=== PATIENT | female | born 1955 | race Caucasian/White ===

== ENCOUNTER 2023-09-13 09:09 | Outpatient (AMB) | payer OTHER, MEDICARE, SELFPAY ==
--- NOTE | 2023-09-13 09:27 | MHC.OFFWIV ---
Intake Vital Signs 09/13/23 09:34 BP 136/74 Blood Pressure Location Lt brachial Position Sitting Pulse 64 Pulse Source Pulse Oximeter Pulse Oximetry (%) 98 Oxygen Delivery Method Room Air Intake Visit Reasons: Stitches Removal Allergies No Known Allergies Allergy (Verified 09/13/23 09:28) Medication List - Last Reconciled 09/13/23 by MAYANK Leiva Unobtainable HPI HPI Comments History of Present Illness Details Here today to have sutures removed Mechanical fall on 09/06/23 sutures placed at [facility] above the right eyebrow Tdap admin at the time of visit She has been caring for this area at home without any complication. Exam Awake alert oriented, healing ecchymosis to the right side of her face, 2 interrupted sutures removed without incident to the repaired laceration above her right eyebrow. The edges are well approximated. There is a small scab. There are no signs of infection. The patient tolerated the procedure well. Plan Advised the patient to monitor her for signs and symptoms of infection, keep the area covered and protected for the son to reduce scarring. This note is constructed using voice recognition software. While every effort has been made to ensure accuracy in automotive salesperson, still errors may have been included Sometimes, these errors may affect the content or meaning of the given sentence . Assessment & Plan Assessment & Plan (1) Visit for suture removal: Code(s): Z48.02 - Encounter for removal of sutures Plan: . Coding Level of Care Code Est Pt Level 3 (32120) Diagnoses Visit for suture removal Z48.02
[2023-09-13 09:34] VITALS: BP 136/74; PULSE 64; O2SAT 98
== END 2023-09-13 09:34 | disposition home or self-care (01) ==
PROVIDERS: Visit Provider Nurse Practitioner Family
DX: Z48.02 Encounter for removal of sutures (principal)
CPT/HCPCS: 99213

== ENCOUNTER 2024-04-23 10:45 | Outpatient (AMB) | payer OTHER, MEDICARE, SELFPAY ==
--- NOTE | 2024-04-23 10:48 | A.OFFPC_ITS ---
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 The Medicare Annual Wellness Visit (AWV) is a yearly appointment with a health professional to identify health risks and help reduce them and to create or update a personalized prevention plan. During a Medicare AWV, health professionals should also review any current opioid prescriptions, detect any cognitive impairment, and establish or update medical and family history. SurgHx: FHx SocHx: Health Maintenance: See scanned preventative medicine assessment with personalized health plan and screening schedule. Colon: Mammo DEXA PAP Vaccines: Tdap 2023, Shingles UTD, COVID UTD, Flu UTD AAA screen EKG: [place] of Care: Visual Acuity: Hearing Screening: ACP: Dietary/Nutrition/Exercise Edu provided: Y During the course of the visit the patient was educated and counseled about fermín ropriate screening and preventative services. Patient instructions were provided to the patient in written or electronic format. I have reviewed and verified the above information. PFSH Medical History (Updated 04/23/24 @ 10:57 by Pop Downey MA) No pertinent past medical history Surgical History (Updated 04/23/24 @ 10:57 by Pop Downey MA) No pertinent past surgical history Family History (Updated 04/23/24 @ 11:01 by Pop Downey MA) Mother Cancer Social History (Updated 04/23/24 @ 10:55 by Pop Downey MA) Household Members: Spouse Both parents involved: No Caregiver staying overnight: No Housing: House Are you a primary patient care nursing assistant to a significant other at home: No Do you presently have visiting nurse or other home services: No 75 years or older and lives alone: No Alcohol intake: current Alcohol intake frequency: a few times a month Patient Tobacco Use Status: Never used Tobacco e-Cigarette/Vaping Use: Never Used Second Hand Smoke Exposure: No service: No Current occupational status: employed Current occupation: [employer] Cognitive needs: No Hearing needs: No Vision needs: No Questionnaire PHQ-9 Over the last 2 weeks, how often have you been bothered by any of the following problems? 1. Little interest or pleasure in doing things: not at all 2. Feeling down, depressed, or hopeless: not at all 3. Trouble falling or staying asleep, or sleeping too much: not at all 4. Feeling tired or having little energy: not at all 5. Poor appetite or overeating: not at all 6. Feeling bad about yourself - or that you are a failure or have let yourself or your family down: not at all 7. Trouble concentrating on things, such as reading the newspaper or watching television: not at all 8. Moving or speaking so slowly that other people could have noticed. Or the opposite - being so fidgety or restless that you have been moving around a lot more than usual: not at all 9. Thoughts that you would be better off or of hurting yourself in some way: not at all Total score: 0 26368 - PHQ-9 Billing: Yes Source: Developed by Drs. Adolfo Rao, Blanche Davenport, Moises Bella and colleagues, with an educational keli from [employer]. Thrive Questionnaire Date Thrive assessed: 04/23/24 I am a: Patient What is your living situation today?: I have a steady place to live Within the past 12 months, did the food you bought not last and you didn't have the money to get more?: Never true Within the past 12 months, did you worry whether your food would run out before you got money to buy more?: Never true Do you have trouble paying for medicines?: No Do you have trouble getting transportation to medical appointments?: No Do you have trouble paying your heating and electricity bill?: No Do you have trouble taking care of your child, family member or friend?: No Do you have trouble with day-to-day activities such as bathing, preparing meals, shopping, managing finances, etc.?: No Are you currently unemployed and looking for a job?: No Are you interested in more education?: No Please select the resources that you would like help with: None Currently or been in a relationship where the following occur: No concerns reported THRIVE Score: 0 AUDIT C Alcohol Use Questionnaire (AUDIT-C) 1. How often do you have a drink containing alcohol?: 2-4 times a month 2. How many drinks containing alcohol do you have on a typical day when you are drinking?: 1 or 2 3. How often do you have six or more drinks on one occasion?: Never Total Score: 2 ROXANN-7 AMB Questionnaire ROXANN-7 Date ROXANN - 7 assessed: 04/23/24 Feeling nervous, anxious, or on edge: 0 = Not at all Not being able to stop or control worryin = Not at all Worrying too much about different things: 0 = Not at all Trouble relaxin = Not at all Being so restless that it is hard to sit still: 0 = Not at all Becoming easily annoyed or irritable: 0 = Not at all Feeling afraid as if something awful might happen: 0 = Not at all Total ROXANN-7 score (0-4 normal; 5-9 mild; 10-14 moderate; 15-21 severe): 0 Source: Developed by Drs. Adolfo Rao, Blanche Davenport, Moises Bella and colleagues, with an educational keli from [employer]. ROXANN-7 Assessment Billing ROXANN-7 Assessment Tool: ROXANN-7 Assessment 65693 Physical exam (Primary Care) Vital Signs: Last Vital Signs Temp 96.8 F 04/23/24 10:55 Pulse 90 04/23/24 10:55 Resp 13 04/23/24 10:55 BP 144/74 H 04/23/24 10:55 Pulse Ox 99 04/23/24 10:55 Oxygen Delivery Method Room Air 04/23/24 10:55 BMI result Body Mass Index 25.1 Tobacco/Smoking Status: Tobacco use Status Tobacco use date assessed 04/23/24 04/23/24 10:52 Patient Tobacco Use Status Never used Tobacco 04/23/24 10:59 e-Cigarette/Vaping Use Never Used 04/23/24 10:59 PHQ-9: PHQ-9 Score PHQ-9: Total score 0 04/23/24 11:00 Thrive Assessment: Date of Thrive Assessment Date Thrive assessed 04/23/24 04/23/24 10:52 Currently or been in a relationship where the following occur: No concerns reported Coding Additional Codes ROXANN-7 Assessment Billing - ROXANN-7 Assessment Tool: ROXANN-7 Assessment 28339 ([id number]) PHQ-9 - 19009 - PHQ-9 Billing: Yes ([id number])
[2024-04-23 10:55] VITALS: BP 144/74; PULSE 90; RESP 13; TEMP 36; O2SAT 99; BMI 25.1
--- NOTE | 2024-04-23 11:20 | A.OFFVIS_ITS ---
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 The Medicare Annual Wellness Visit (AWV) is a yearly appointment with a health professional to identify health risks and help reduce them and to create or update a personalized prevention plan. During a Medicare AWV, health professionals should also review any current opioid prescriptions, detect any cognitive impairment, and establish or update medical and family history. SurgHx: never FHx: mom cancer of liver - unsure thsi was in the SocHx: weekly etoh use; never smoker; drug use has 2 dtrs Anila and Delisa, working at [email or web address] Health Maintenance: See scanned preventative medicine assessment with personalized health plan and screening schedule. Colon: cologaurd ordered today Mammo: ordered today DEXA : ordered today PAP: has never had an abnormal- aged out Vaccines: Tdap 2023, Shingles UTD, COVID UTD, Flu UTD AAA screen: NA EKG: done today [place] [facility]: [facility] q 6 months Visual Acuity: routine eye exams wears contacts Hearing Screening: no concerns ACP: does not have HCP/MOLST Dietary/Nutrition/Exercise Edu provided: Y During the course of the visit the patient was educated and counseled about appropriate screening and preventative services. Patient instructions were provided to the patient in written or electronic format. I have reviewed and verified the above information. History of Present Illness - The patient is a 69-year-old female pr esenting to [facility] and for an sAWV - Not engaged in routine healthcare for 15 years but adheres to regular eye and dental checkups. No records avail to me. - Last mammogram occurred in 2009 or 1; she wishes to renew along with bone density screening. - Previous colonoscopy at age 51; opts f or Cologuard screening now. - No existing comorbidities or regular m edication usage noted. - Family medical history indicates liver cancer of unknown origin in mother's history. - Active lifestyle maintained through re gular exercise like golf. - Interest in evaluation and treatment o f varicose veins. Past Surgical History - No surgical history reported. Family History - Mother had cancer of unknown origin, l premaely liver-related. - No family history of breast cancer rep orted. Social History - The patient is and has two nathan lt daughters. - Works full-time at a [employer]. - Engages in regular exercise, including time at the golf range weekly. - Nutritional intake includes daily cons umption of avocado, vegetables, and lean proteins such as chicken. - Consumes alcohol occasionally and leon es smoking or drug usage. - Denies any functional limitations or a ssistance in activities of daily living. Health Maintenance - Routine evaluation of eye health and d ental health maintained. - Screening for breast cancer, osteoporo sis, and colorectal cancer due. - Agreed to mammogram, bone density, and Cologuard testing. - Discussed potential testing for choles terol and blood glucose, declined immediate testing. - Agreed to assessment for thyroid funct ion and vitamin D levels. Review of Systems - General: Denies any significant past m edical concerns. - Cardiovascular: Denies dizziness, dysp jeri, and syncope. - Musculoskeletal: Reports engaging in r egular exercise. - Neurological: Denies any neuromuscular symptoms. Physical Exam General: Well developed, well nourished, in no acute distress. Appears younger than stated age. Head: Normocephalic, atraumatic. Eyes: Pupils are equal, round and reactive to light and accommodation. Conjunctivae are clear. Vision grossly normal. Ears: TMs clear AU, EACS WNL Nose: Patent, without discharge. Neck: Supple, no adenopathy or thyromegaly. Breast: Edu on SBE Lungs: Clear to auscultation bilaterally. No rales, rhonchi or wheeze noted. Good air flow in all mesa. Heart: Regular rate and rhythm. No murmurs, click, rubs or gallops are noted. Abdomen: Bowel sounds present in all quadrants. The abdomen is soft, nontender, with no masses or organomegaly noted. No hernias are noted. : Deferred. Reviewed recommendations for routine CLINICAL PHYSICIAN ASSISTANT Pulses: Peripheral pulses are equal and palpable bilaterally. Extremities: No clubbing, cyanosis noted. varicose veins/spider veins bilat upper and lower legs, skin intact Neurologic: Gait and station normal. Cranial Nerves 2-12 intact. Motor strength grossly symmetrical and intact. No sensory loss. Balance normal. Skin: No rashes, ulcers, or lesions noted. Turgor is good. Skin color is good. H air and nails are without abnormalities. One mole on the back, unchanged over time. Psych: Normal eye contact, affect and mood appropriate, and normal interactions. Patient is alert and appropriate to context. Results - Labs: Orders placed for thyroid functi on and vitamin D levels. - Tests and Diagnostics: Orders for mamm ogram, bone density screening, Cologuard test, and EKG. Discussion Notes During our visit, I discussed with the patient the importance of updating her screenings for mammogram and bone density, given the duration since her last tests. We reviewed the option of using the Cologuard test for colorectal cancer screening, which she agreed to, as it provides a non-invasive alternative to colonoscopy. We further talked about routine screenings for thyroid function and vitamin D, considering her current health status and lifestyle. Options for varicose vein treatment were mentioned, and the referral to a specialist was agreed upon. We also discussed lab work for thyroid and vitamin D, and ensuring lifestyle factors such as dietary habits, exercise routine, and general wellness are managed effectively. I reassured her that these procedures are routine and important for ongoing health maintenance. Assessment and Plan 1. Routine Health Maintenance and Screen ing: Mammogram, bone density, and Cologuard tests will be scheduled to ensure up-to-date health maintenance. These are routine preventative screenings appropriate for her age and health history. 2. Thyroid Disorder Screening: A blood t est to assess thyroid function is appropriate given the absence of previous screenings. 3. Vitamin D Deficiency Screening: A vit hoyos D test will be conducted due to lifestyle factors and age-related risks. 4. Varicose Veins: Referral to a special ist has been made for evaluation and treatment options. The patient understands the next steps and will be contacted for scheduling. Patient Instructions - Schedule appointments for mammogram, b one density screening, and Cologuard test. - Undergo blood tests for thyroid functi on and vitamin D levels. - Follow up with the vein specialist for varicose vein evaluation. - Maintain current exercise and nutritio nal habits. - Contact the office for any new or wors ening symptoms or if assistance is needed for test scheduling. - RTO 1 year sAWV, sooner PRN Consent I obtained verbal consent from the patient for the mammogram, bone density, Cologuard test, thyroid, and vitamin D screenings. The patient understands the purpose of these tests and consents to them being conducted. Additionally, the referral to a vein specialist for varicose vein evaluation was discussed, and the patient consented to proceed. She is aware of the non-invasive nature of these procedures and their importance in her overall health maintenance. Patient was informed and verbally consented to the use of an ambient scribe for clinic note documentation during this visit. An additional 30 minutes was spent addressing the problem(s) noted at todays visit. This includes time spent before the visit reviewing the chart, time spent during the visit, and time spent after the visit on documentation reviewing laboratory results, diagnostic imaging, medications, performing a medically necessary evaluation, counseling on diagnoses, care coordination, ordering appropriate tests, ordering appropriate medications, review of tests performed by other providers, reporting test results with the patient, communication with other healthcare providers. [facility] Medical History (Updated 04/23/24 @ 15:31 by Kisha Christie, [facility]) No pertinent past medical history Surgical History (Updated 04/23/24 @ 10:57 by Pop Downey MA) No pertinent past surgical history Family History (Updated 04/23/24 @ 11:01 by Pop Downey MA) Mother Cancer Social History (Updated 04/23/24 @ 10:55 by Pop Downey MA) Household Members: Spouse Both parents involved: No Caregiver staying overnight: No Housing: House Are you a primary disabilities caregiver to a significant other at home: No Do you presently have visiting nurse or other home services: No 75 years or older and lives alone: No Alcohol intake: current Alcohol intake frequency: a few times a month Patient Tobacco Use Status: Never used Tobacco e-Cigarette/Vaping Use: Never Used Second Hand Smoke Exposure: No Questionnaire Medicare Wellness Checkup What [age]?: [age] What gender do you identify with?: female During the past 4 weeks, how much have you been bothered by emotional problems such as feeling anxious, depressed, irritable, sad or downhearted, and blue?: not at all During the past 4 weeks, has your physical & emotional health limited your social activities with family, friends, neighbors, or groups?: not at all During the past 4 weeks, how much bodily pain have you generally had?: no pain During the past 4 weeks, was someone available to help you if you needed & wanted help?: yes, as much as I wanted During the past 4 weeks, what was the hardest physical activity you could do for at least 2 minutes?: very heavy Can you get to places out of walking distance without help? (For eg., can you travel alone on buses, taxis or drive your car?): Yes Can you go shopping for groceries or clothes without someone's help?: Yes Can you prepare your own meals?: Yes Can you do your housework without help?: Yes Because of any health problems, do you need the help of another person with your personal care needs such as eating, bathing, dressing or getting around the house?: No Can you handle your own money without help?: Yes During the past 4 weeks, how would you rate your health in general?: excellent During the past 4 weeks how have things been going for you?: very well; could hardly better Are you having difficulties driving your car?: no Do you always fasten your seat belt when you are in a car?: yes, usually During past 4 weeks, have you been bothered by the following: never: Falling or dizzy when standing up, Sexual problems?, Trouble eating well?, Teeth or denture problems?, Problems using the telephone? and Tiredness or fatigue? Have you fallen 2 or more times in the past year?: No Are you afraid of falling?: No Are you a smoker?: no During the past 4 weeks, how many drinks of wine, beer, or other alcoholic beverages did you have?: 1 drink or less per week Do you exercise for about 20 minutes 3 or more times a week?: yes, all the time Have you been given information to help with the following?: no: Hazards in your house that might hurt you? and no: Keeping track of your medications? How often do you have trouble taking medicines the way you have been told to take them?: I do not have to take medicine How confident are you that you can control & manage most of your health problems?: very confident What is your race?: White Activity of Daily Living Bathing - sponge bath, tub bath or shower: receives no assistance (gets in/out by self, if usual bathing means Dressing - getting clothes from closets & drawers, including inner/outer garments & fasteners.: gets clothes & gets completely dressed without help Toileting - going to the 'toilet room' for urine/bowel elimination & cleaning self/arranging clothes: goes to toilet room, cleans self, arranges clothes without help Transfer: moves in & out of bed and chair without help (may use support object) Continence: controls urination/bowel movements completely by self Feeding: feeds self without help Total Score: 0 Information obtained from: patient Using telephone: independent Traveling: independent Shopping: independent Preparing meals: independent Housework: independent Taking medicine: independent Managing money: independent PHQ-9 Over the last 2 weeks, how often have you been bothered by any of the following problems? 1. Little interest or pleasure in doing things: not at all 2. Feeling down, depressed, or hopeless: not at all 3. Trouble falling or staying asleep, or sleeping too much: not at all 4. Feeling tired or having little energy: not at all 5. Poor appetite or overeating: not at all 6. Feeling bad about yourself - or that you are a failure or have let yourself or your family down: not at all 7. Trouble concentrating on things, such as reading the newspaper or watching television: not at all 8. Moving or speaking so slowly that other people could have noticed. Or the opposite - being so fidgety or restless that you have been moving around a lot more than usual: not at all 9. Thoughts that you would be better off or of hurting yourself in some way: not at all Total score: 0 Depression Screening Interpretation: Negative Depression Screening Done: Yes 99988 - PHQ-9 Billing: Yes Source: Developed by Drs. Adolfo Rao, Blanche Davenport, Moises Bella and colleagues, with an educational keli from [employer]. Physical Exam Vital Signs: Last Vital Signs Temp 96.8 F 04/23/24 10:55 Pulse 90 04/23/24 10:55 Resp 13 04/23/24 10:55 BP 122/70 04/23/24 11:21 Pulse Ox 99 04/23/24 10:55 Oxygen Delivery Method Room Air 04/23/24 10:55 BMI result Body Mass Index 25.1 Office Procedures EKG [id number], Complete Results Reviewed Results Reviewed: RUN: 04/23/24 1528 PAGE 1 [facility] [address] [place] [id number] Electrode Cleaning Machine Operator: Joel Black M.D. Specimen Inquiry Name: Eva Bell Age/Sex: 69/F : 1955 Unit#: [id number] Attend Dr: Kisah Christie Re04/23/24 Status: REG [facility] Disch: SPEC : [id number] EDSON: 04/23/24 STATUS: RES REQ : [id number] RECD: 04/23/24-[address]: Kisha Christie COMP: - ENTERED: 04/23/24-[address]: ORDERED: CMP, Vitamin D 25-OH, TSH Rflx Test Result Flag Reference Sodium 140 135-145 mmol/L Potassium 4.4 3.3-5.1 mmol/L CL 105 96-108 mmol/L CO2 25 22-29 mmol/L Gap 14 12-20 BUN 14 9-16 mg/dL Creat 0.91 0.5-1.4 mg/dL eGFR > 60 Chronic Kidney Disease: Estimated GFR < 60 mL/min/1.73m2 Severe Kidney Disease: Estimated GFR < 15 mL/min/1.73m2 Glucose, Random 98 60-115 mg/dL CA 10.1 8.4-10.2 mg/dL Total Bili 1.5 H 0.0-1.0 mg/dL AST (GOT) 23 5-31 U/L ALT (GPT) 11 0-31 U/L Protein, Total 8.6 H 6.5-8.0 g/dL Alb 4.7 3.5-5.0 g/dL Alk Phos 54 39-117 U/L Vit D 25-OH Tot PENDING TSH PENDING Assessment & Plan Assessment & Plan (1) Encounter for subsequent annual wellness visit (AWV) in Medicare patient: Code(s): Z00.00 - Encounter for general adult medical examination without abnormal findings (2) Menopause: Code(s): Z78.0 - Asymptomatic menopausal state (3) Laboratory exam ordered as part of routine general medical examination: Code(s): Z00.00 - Encounter for general adult medical examination without abnormal findings (4) Varicose veins of both legs with edema: Code(s): I83.893 - Varicose veins of bilateral lower extremities with other complications (5) Lipid screening declined by patient: Code(s): Z53.20 - Procedure and treatment not carried out because of patient's decision for unspecified reasons (6) Diabetes mellitus screening declined by patient: Code(s): Z53.20 - Procedure and treatment not carried out because of patient's decision for unspecified reasons (7) Advanced care planning/counseling discussion: Code(s): Z71.89 - Other specified counseling (8) Encounter to establish care: Code(s): Z76.89 - Persons encountering health services in other specified circumstances Plan . Orders: Orders MM tomosynthesis screening BI Today Z12.31 - Encounter for screening mammogram for malignant neoplasm of breast XR DEXA axial skeleton Today Z13.820 - Encounter for screening for osteoporosis, Z78.0 - Asymptomatic menopausal state Comprehensive Met. Panel Today Z00.00 - Encounter for general adult medical examination without abnormal findings Vitamin D 25-OH Total Today Z00.00 - Encounter for general adult medical examination without abnormal findings TSH reflex Free T4 Today Z00.00 - Encounter for general adult medical examination without abnormal findings AMB EKG-In Office Today Z13.6 - Encounter for screening for cardiovascular disorders Referrals Vascular Surgery Referral I83.893 - Varicose veins of bilateral lower extremities with other complications Cologuard Test Z12.11 - Encounter for screening for malignant neoplasm of colon, Z12.12 - Encounter for screening for malignant neoplasm of rectum Patient Instructions: Health screenings for women You should visit your health care provider from time to time, even if you are healthy. The purpose of these visits is to: Screen for medical issues Assess your risk for future medical problems Encourage a healthy lifestyle Update vaccinations and other preventive care services Help you get to know your provider in case of an illness Information Even if you feel fine, you should still see your provider for regular checkups. These visits can help you avoid problems in the future. For example, the only way to find out if you have high blood pressure is to have it checked regularly. High blood sugar and high cholesterol levels also may not have any symptoms in the early stages. A simple blood test can check for these conditions. There are specific times when you should see your provider or receive specific health screenings. The [place] Preventive Services Task Force publishes a list of recommended screenings. Below are screening guidelines for women ages 18 to 39. BLOOD PRESSURE SCREENING Your blood pressure should be checked at least once every 3 to 5 years if: Your blood pressure is in the normal range (top number less than 120 mm Hg and bottom number less than 80 mm Hg) You don't have risk factors for high blood pressure Ask your provider if you need your blood pressure checked more often if: The top number is 120 to 129 mm Hg or the bottom number is 70 to 79 mm Hg You have diabetes, heart disease, kidney problems, are overweight, or have certain other health conditions You have a first-degree relative with high blood pressure You are Black You had high blood pressure during a If the top number is 130 mm Hg or greater or the bottom number is 80 mm Hg or greater, this is considered stage 1 hypertension. Schedule an appointment with your provider to learn how you can reduce your blood pressure. Watch for blood pressure screenings in your area. Ask your provider if you can stop in to have your blood pressure checked. BREAST CANCER SCREENING Experts do not agree about the benefits of breast self-exams in finding breast cancer or saving lives. Talk to your provider about what is best for you. A screening mammogram is not recommended for most women under age 40. Your provider may discuss and recommend mammograms, MRI scans, or ultrasounds if you have an increased risk for breast cancer, such as: A mother or sister who had breast cancer at a young age (most often starting screening earlier than the age the close relative was diagnosed) You carry a high-risk genetic marker CERVICAL CANCER SCREENING Cervical cancer screening should start at age 21 years unless your provider advises otherwise. After the first test: Women ages 21 through 29 should have a Pap test every 3 years. Exoprts do not agree on whether HPV testing is recommended for this age group. Women ages 30 through 65 should be screened with either a Pap test every 3 years or the HPV test every 5 years or both tests every 5 years (called cotesting ). Women who have been treated for precancer (cervical dysplasia) should continue to have Pap tests for 20 years after treatment or until age 65, whichever is longer. If you have had your uterus and cervix removed (total hysterectomy), and you have not been diagnosed with cervical cancer or precancer (high grade cervical neoplasia), you do not need cervical cancer screening. CHOLESTEROL SCREENING Cholesterol screening should begin at: Age 45 for women with no known risk factors for coronary heart disease Age 20 for women with known risk factors for coronary heart disease Repeat cholesterol screening should take place: Every 5 years for women with normal cholesterol levels More often if changes occur in lifestyle (including weight gain and diet) More often if you have diabetes, heart disease, kidney problems, or certain other conditions DIABETES SCREENING You should be screened for diabetes starting at age 35 and then repeated every 3 years if you have no risk factors for diabetes. Screening may need to start earlier and be repeated more often if you have other risk factors for diabetes, such as: You have a first degree relative with diabetes. You are overweight or have obesity. You have high blood pressure, prediabetes, or a history of heart disease. Screening for diabetes should be done if you are planning to become and you are overweight and have other risk factors such as high blood pressure. DENTAL EXAM Go to the dentist once or twice every year for an exam and cleaning. Your dentist will evaluate if you need more frequent visits. EYE EXAM Have an eye exam every 5 to 10 years before age 40. If you have vision problems, have an eye exam every 2 years or more often if recommended by your provider. You should have an eye exam that includes an examination of your retina (back of your eye) at least every year if you have diabetes. IMMUNIZATIONS Commonly needed vaccines include: Flu shot: get one every year. COVID-19 vaccine: ask your provider what is best for you. Tetanus-diphtheria and acellular pertussis (Tdap) vaccine: have one at or after age 19 as one of your tetanus-diphtheria vaccines if you did not receive it as an adolescent. Tetanus-diphtheria: have a booster (or Tdap) every 10 years. Varicella vaccine: receive 2 doses if you never had chickenpox or the varicella vaccine. Hepatitis B vaccine: receive 2, 3, or 4 doses, depending on your exact circumstances. Measles, mumps, and rubella (MMR) vaccine: receive 1 to 2 doses if you are not already immune to MMR. Your provider can tell you if you are immune. Ask your provider about the human papillomavirus (HPV) vaccine if: You have not received the HPV vaccine in the past You have not completed the full vaccine series (you should catch up on this shot) Ask your provider if you should receive other immunizations if you have certain health problems that increase your risk for some diseases such as pneumonia. INFECTIOUS DISEASE SCREENING Women who are sexually active should be screened for chlamydia and gonorrhea up until age 25. Women 25 years and older should be screened for chlamydia and gonorrhea if at high risk. Screening for hepatitis C: All adults ages 18 to 79 should get a one-time test for hepatitis C. people should be screened at every . Screening for human immunodeficiency virus (HIV): All people ages 15 to 65 should get a one-time test for HIV. Depending on your lifestyle and medical history, you may also need to be scr eened for infections such as syphilis and HIV, as well as other infections. PHYSICAL EXAM All adults should visit their provider from time to time, even if they are healthy. The purpose of these visits is to: Screen for disease Assess your risk of future medical problems Encourage a healthy lifestyle Update your vaccinations and other preventive care services Maintain a relationship with a provider in case of an illness Your height, weight, and BMI should be checked at every exam. During your exam, your provider may ask you about: Depression and anxiety Diet and exercise Alcohol and tobacco use Safety issues, such as using seat belts, smoke detectors, and intimate partner violence Your medicines and risk for interactions SKIN SELF-EXAM Your provider may check your skin for signs of skin cancer, especially if you're at high risk, such as if you: Have had skin cancer before Have close relatives with skin cancer Have a weakened immune system OTHER SCREENING Talk with your provider about colon cancer screening if you have a strong family history of colon cancer or polyps, or if you have had inflammatory bowel disease or polyps yourself. Routine bone density screening of women under 40 is not recommended. Walk-In Care (Urgent Care): We Make it Easy Walk-in for urgent medical issues such as: ? Seasonal Allergies ? Insect Bites ? Cough ? Diarrhea ? Acute Asthma Attacks ? Back, Knee or Joint Pain ? Ear Infection ? Fever without a Rash ? Headaches ? Nausea ? Rossiter Eye, Rash or Skin Irritation ? Sore Throat ? Sports Physicals ? Vomiting Most insurances are accepted. Patients do not need to be part of the [facility] to seek care at the walk-in clinic. Locations [address] , [place] [address] ? [phone] [facility] in [place] provides services to ages 18 and over. Open Saturday-Saturday: 8 a.m. to 5 p.m. and Saturday: 9 a.m. to 3 p.m.* *Hours may vary due to staffing availability. To confirm Walk-In Care hours in [place], please call [phone]. [address] [place] [address] ? [phone] [facility] in [place] provides services to ages 12 and over. Open Saturday-Saturday: 8 a.m. to 5 p.m. Hours may vary due to staffing availability. To confirm Walk-In Care hours in [place], please call [phone]. LABORATORY SERVICES: [facility] ? Primary Location [address] [place] [address] Saturday through Saturday 6:00 AM ? 5:00 PM Saturday 7:00 AM ? 11:00 AM* [phone] The [facility] is centrally located near the front entrance of the [facility] for easy outpatient access. Convenient parking is provided for outpatients. *Hours may vary due to staffing availability. To confirm Laboratory hours for any location, please call [phone]. Offsite Location For your convenience, we offer offsite laboratory draw stations at the following locations: [address] [place] [address] ? [facility] [address], [address], [place] Saturday through Saturday 7:30 AM ? 1:00 PM* [phone] *Hours may vary due to staffing availability. To confirm Laboratory hours for any location, please call [phone]. [place] ? [address] [facility], [place] Saturday through Saturday 6:00 AM ? 3:30 PM* Saturday 6:30 AM ? 3 PM* [phone] *Hours may vary due to staffing availability. To confirm Laboratory hours for any location, please call [phone]. [address] [facility] Saturday through Saturday 7:30 AM ? 4:00 PM* [phone] *Hours may vary due to staffing availability. To confirm Laboratory hours for any location, please call [phone] [place] [address] Saturday through 9:00 AM ? 4:00 PM* *Hours may vary due to staffing availability. To confirm Laboratory hours for any location, please call [phone]. Appointments are not necessary. Walk-ins are welcome. Like all the departments throughout the [facility], our Lab undergoes frequent reviews to ensure the quality and accuracy of test results, and our staff takes special pride in its status as a nationally accredited facility. Patient Portal: ONE PATIENT. ONE RECORD. BETTER CARE. [facility] has a fully integrated, cutting- edge mobile electronic health information system that has revolutionized the way we care for our patients and manage our organization. This system improves communication and coordination enabling us to provide safe, higher-quality care, and an overall positive experience for staff and patients. Our first priority, as always, is to deliver the highest quality care possible. The system is running in the background supporting that priority. This portal is for all [facility] services and practices. If you are experiencing any technical difficulties with enrolling or logging into the Patient Portal please complete the [facility] Technical Support Form. [facility] now offers a new secure on-line interactive tool for patients to review their health information ? ?Patient Portal. This interactive web portal will enable patients and their families to take an active role in their care by providing easy, secure access to their health information via the internet. The Patient Portal provides patients with instant access to their health information, including laboratory results, medications, allergies, demographic information, visit history, and more. In addition to managing their own care, parents and health care proxies with authorized consent will appreciate the ability to access the records of those individuals for whom they provide care. Please note: if you wish to gain access (Proxy) to another patient?s portal, you will be required to come to the Medical Records Department in person at [facility]. Both the patient giving proxy access and the proxy will need to provide photo identification and complete the appropriate authorization. The Patient Portal also allows track their appointments online. The [facility] Patient Portal also saves patients time by allowing them to submit updates to their demographic and contact information prior to their visits. Portal email notifications will also alert patients to any new activity on their portal, such as test results and new appointments. In order to initially enroll in the [facility] Patient Portal, you will need to enter some required information including the following: * your [facility] Medical Record number * your personal home email address * name * date of Please note: In order to enroll in the [facility] Patient Portal, we need to have your email address on file in your electronic medical record. ?The email address needs to be specific for one person (yourself) in order for your Portal enrollment to be successful. ?You can update your email address in person with our Registration staff when you are registering for a hospital visit. ?Otherwise, you will need to come to the Health Information Management (Medical Records) Department at [facility]. ?We are open from Saturday ? Saturday from 7:30 a.m. ? 4:30 p.m. ?You will be required to present a photo id. Once you have successfully enrolled in the Patient Portal, you will receive a one-time user id and password for the Portal, sent to your email address. ?This will allow you to log into the Patient Portal within 99 hrs and reset your own logon id and password, and define personal security questions. ?Once your permanent login and password have been set, you can log into the [facility] Patient Portal at any time via the blue button above or from the Portal Logon button on any page of the [facility] website. [facility] encourage all of our patients to enroll in Patient Portal as it presents a valuable opportunity for patients and their families to actively participate in their care and stay healthy Welcome to [facility]. ?We look forward to working with you. Quality Reporting (2019) Adult ([facility] 138/2/22/69) Smoking risk assessment performed?: Yes Patient Tobacco Use Status: Never used Tobacco Depression screening performed: Yes Screen Results: Yes Negative screen Systolic BP not done?: No Diastolic BP not done?: No BMI screening not done: No Sexual Activity Screening ([facility] 153) Sexually active?: Yes Immunizations ([facility] 147, 117) Annual Influenza Vaccine: Yes Measles Antibody Test: No Mumps Antibody Test: No Rubella Antibody Test: No Varicella Antibody Test: No Anti Hepatitis A IgG Antigen test: No Anti Hepatitis B Virus Surface Ab test: No Fall Risk Screening ([facility] 139) Last assessed Fall Risk: 04/23/24 Fall risk assessment: No Falls in past year Dementia Assessment ([facility] 149) Cognitive assessment recorded: Yes Assessment of cognition with standardized tool: Yes (6 CIT wNL) Depression/Bipolar (159/160/161/177) PHQ-9: Total score: 0 Ophthalmol:Cataracts Visual Acuity (133) Visual acuity exam performed: Yes (routine eye exams) Coding Level of Care Code Medicare Subsequent (G0439) Est Pt Level 4 (55952) Diagnoses Encounter for subsequent annual wellness visit (AWV) in Medicare patient Z00.00 Menopause Z78.0 Laboratory exam ordered as part of routine general medical examination Z00.00 Varicose veins of both legs with edema I83.893 Lipid screening declined by patient Z53.20 Diabetes mellitus screening declined by patient Z53.20 Advanced care planning/counseling discussion Z71.89 Encounter to establish care Z76.89 CPT Codes Advance Care Planning - Time spent: 1-15 minutes, not on file ([id number]) EKG - CPT: 06295-[id number], Complete ([id number]) Additional Codes PHQ-9 - 56960 - PHQ-9 Billing: Yes ([id number]) Advance Care Planning Advance Care Planning discussion: Exists, not on file Date of discussion: 03/06/25 Who was present: self Forms completed: Health Care Proxy, MOLST and Living will Time spent: 1-15 minutes, not on file Actual minutes spent: 5
[2024-04-23 11:21] VITALS: BP 122/70
== END 2024-04-23 12:02 | disposition home or self-care (01) ==
PROVIDERS: PCP Nurse Practitioner Family; Visit Provider Nurse Practitioner Family
DX: Z00.00 Encounter for general adult medical examination without abnormal findings (principal); I83.893 Varicose veins of bilateral lower extremities with other complications; Z78.0 Asymptomatic menopausal state; Z53.20 Procedure and treatment not carried out because of patient's decision for unspecified reasons; Z71.89 Other specified counseling; Z76.89 Persons encountering health services in other specified circumstances; Z13.6 Encounter for screening for cardiovascular disorders

== ENCOUNTER 2024-04-23 11:45 | Outpatient (REF) | payer OTHER, SELFPAY ==
[2024-04-23 15:18] LABS: Alanine Aminotransferase 11 U/L (0-31); Albumin Level 4.7 g/dL (3.5-5.0); Alkaline Phosphatase 54 U/L (39-117); Anion Gap 14 (12-20); Aspartate Amino Transferase 23 U/L (5-31); Bilirubin Total 1.5 mg/dL (0.0-1.0); Blood Urea Nitrogen 14 mg/dL (9-16); Calcium 10.1 mg/dL (8.4-10.2); Carbon Dioxide 25 mmol/L (22-29); Chloride 105 mmol/L (96-108); Estimated Glomerular Filt Rate > 60; Glucose Random 98 mg/dL (60-115); Potassium 4.4 mmol/L (3.3-5.1); Sodium 140 mmol/L (135-145); Total Protein 8.6 g/dL (6.5-8.0)
[2024-04-23 15:38] LABS: TSH reflex Free T4 3.12 uIU/mL (0.32-4.0); Vitamin D 25-OH Total 14.8 ng/mL (>30)
== END 2024-04-23 11:46 | disposition home or self-care (01) ==
LOC: HO.WFDLDS 11:45
PROVIDERS: Visit Provider Nurse Practitioner Family
DX: Z00.00 Encounter for general adult medical examination without abnormal findings (principal); I83.893 Varicose veins of bilateral lower extremities with other complications; Z78.0 Asymptomatic menopausal state; Z71.89 Other specified counseling; Z76.89 Persons encountering health services in other specified circumstances
CPT/HCPCS: 36415; 80053; 82306; 84443; 93005; 96127

== ENCOUNTER 2024-04-30 09:28 | Outpatient (AMB) | payer OTHER, SELFPAY ==
[2024-04-30 09:53] VITALS: BMI 25.1
--- NOTE | 2024-04-30 09:53 | MHC.OFFVIS ---
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 Does have large VV and many spider veins on bilateral LE. Pt states she exercises daily. 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 Pt states left LE does feel heavy and does get swelling. 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 Complaints include discomfort over varicosities, slight swelling of lower extremities, cramping, and fatigue of the lower extremities. It has been affecting their daily activities including working in physical activity. It is noted more so in left leg. She is a nonsmoker and nondiabetic. She stays very physically active. 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 Patient denies any previous venous surgery or injections. Patient denies any history of DVT/ PE. Patient denies any history of phlebitis. Trial of compression includes - elevate her legs with some relief at night They now present for vascular evaluation regarding their varicose veins. [facility] Medical History No pertinent past medical history Surgical History No pertinent past surgical history Family History Mother Cancer Social History Household Members: Spouse Both parents involved: No Caregiver staying overnight: No Housing: House Are you a primary emergency care attendant to a significant other at home: No Do you presently have visiting nurse or other home services: No 75 years or older and lives alone: No Alcohol intake: current Alcohol intake frequency: a few times a month Patient Tobacco Use Status: Never used Tobacco e-Cigarette/Vaping Use: Never Used Second Hand Smoke Exposure: No Review of Systems Const Reports as per HPI and Denies weakness ENT Reports Normal hearing present and Denies dizziness Card Reports as per HPI, Denies chest pain, Denies chest pain at rest, Denies chest pain with activity, Denies dyspnea and Denies dyspnea on exertion Resp Reports as per HPI, Denies cough, Denies dyspnea and Denies dyspnea on exertion GI Reports as per HPI, Denies abdominal pain, Denies nausea and Denies vomiting Musc Denies numbness Skin/Breast Reports as per HPI, Denies erythema and Denies wounds Neuro Reports Normal hearing present, Denies dizziness, Denies numbness, Denies Sensory deficit (Neuro) and Denies weakness Psych Reports no additional complaints Endo Reports no additional complaints Physical Exam Vital Signs: BMI result Body Mass Index 25.1 Const General: healthy appearing and no acute distress Orientation/consciousness: patient oriented x3 HEENT Head: Yes normal to inspection Ears: hearing grossly normal bilaterally Mouth: Normal oral and palatal mucosa present Resp Effort & Inspection: normal respiratory effort and able to speak in complete sentences Auscultation: clear to auscultation bilaterally Cardio Jugular venous distension: no JVD Rate: regular rate Rhythm: regular rhythm Heart sounds: S1 normal heart sound present and S2 normal heart sound present Bruits: no abdominal aortic bruits, no carotid bruits, no femoral bruits and no renal bruits Peripheral pulses: Peripheral pulses 2+ throughout GI Inspection: Yes normal to inspection Palpation (GI): No Abdominal aortic bruit present Skin General skin exam: no rashes or lesions noted Wounds: no wounds Hair: normal Neuro General: patient oriented x3 Cranial nerves: Yes Normal hearing present Cognition (Neuro): normal cognition Gait exam (Neuro): Normal gait present Motor exam (neuro): 5/5 motor strength present throughout Sensory Exam: No Sensory deficit (Neuro) Extrem Other: Bilateral lower extremities: Multiple spider veins noted throughout from the upper thighs to the ankles. Slight discoloration noted around the ankles. No edema noted. Left lower extremity: Rope-like tortuosity noted on the medial aspect from just above the knee to mid calf. Right lower extremity: Smaller rope-like tortuosity noted on the medial aspect from just above the knee to mid calf. CEAP: C - 4 E - primary A - superficial P - reflux General: Yes normal to inspection, Yes full ROM, Yes capillary refill normal and Yes normal gait Quality Reporting (2019) Adult ([facility] 138/04/11/68) Smoking risk assessment performed?: Yes Patient Tobacco Use Status: Never used Tobacco Assessment & Plan Assessment & Plan (1) Varicose veins of both lower extremities with inflammation: Code(s): I83.11 - Varicose veins of right lower extremity with inflammation; I83.12 - Varicose veins of left lower extremity with inflammation Category: Medical Plan: Eva is presenting today as a referral from her PCP for varicose veins. She states she has had them for quite awhile now, longer than 20 years. She states now they are causing some discomfort. In short, the patient has evidence of venous insufficiency. I have discussed the pathophysiology with the patient. In addition I have provided informational material regarding venous disease to the patient. We have discussed conservative measures including compression, elevation, and exercise. We are able to provide her with sets of compression stockings. We discussed wearing them 8-12 hours a day and taking them off before bed at night. I have taken the liberty of ordering venous insufficiency testing with the patient. They will follow up with me after testing. The patient had an opportunity to ask questions regarding the treatment plan. All questions were answered. Imaging studies, laboratory studies and physical exam results were discussed and reviewed in detail. No major barriers to understanding were identified. The patient expressed understanding and agreement with the above treatment plan. The patient is aware they should contact our office by phone for worsening of the current condition or the appearance of new symptoms. Thank you for allowing me to participate in the vascular care of this patient. If you have any questions or concerns regarding the treatment for the above condition please do not hesitate to contact me. The office telephone contact is [phone]. This note is constructed using voice recognition software. While every effort has been made to ensure accuracy, delivery agent errors may have been included. Thank you for allowing me to participate in the care of your patient. Yours sincerely, DEBBY Ruiz Orders: Orders US venous duplex LE BI 1 Week I83.11 - Varicose veins of right lower extremity with inflammation, I83.12 - Varicose veins of left lower extremity with inflammation Coding Level of Care Code New Pt Level 4 (33187) Diagnoses Varicose veins of both lower extremities with inflammation I83.11; I83.12
== END 2024-04-30 10:30 | disposition home or self-care (01) ==
LOC: HO.HVS 09:29
PROVIDERS: PCP Nurse Practitioner Family; Visit Provider Physician Assistant Surgical
DX: I83.11 Varicose veins of right lower extremity with inflammation (principal); I83.12 Varicose veins of left lower extremity with inflammation
CPT/HCPCS: 99204

== ENCOUNTER 2024-05-08 09:24 | Outpatient (REF) | payer OTHER, SELFPAY ==
[2024-05-08 11:33] LABS: Cholesterol 310 mg/dL (<200); HDL Cholesterol 88 mg/dL (>40); LDL Cholesterol Calculated 192 mg/dL (<100); Triglycerides 154 mg/dL (<150)
== END 2024-05-08 09:25 | disposition home or self-care (01) ==
LOC: HO.WFDLDS 09:24
PROVIDERS: Visit Provider Nurse Practitioner Family
DX: Z13.6 Encounter for screening for cardiovascular disorders (principal); Z13.220 Encounter for screening for lipoid disorders
CPT/HCPCS: 36415; 80061

== ENCOUNTER 2024-05-22 08:12 | Outpatient (REF) | payer OTHER, SELFPAY ==
--- NOTE | ~2024-05-22 | US_ITS ---
EXAMINATION: US LOWER EXTREMITY VENOUS (REFLUX EXAM), BILATERAL CLINICAL INFORMATION: Varices. COMPARISON: None. TECHNIQUE: Color flow triplex imaging and compression Doppler was performed to evaluate both the deep and the superficial systems bilaterally. To evaluate the superficial system, the examination was performed in the upright position. Color-flow Doppler ultrasound and compression ultrasound were utilized. In addition, maneuvers were utilized to demonstrate reflux. FINDINGS: 1. DEEP VENOUS ULTRASOUND OF THE RIGHT LOWER EXTREMITY: Common Femoral Vein: Compressible, normal respiratory variation and augmented flow. Femoral Vein: Compressible, normal color flow and augmentation. Popliteal Vein: Compressible, normal augmentation. Deep Reflux: There is no evidence of reflux in the deep system in either the common femoral vein, superficial femoral or the popliteal vein. There is no evidence of a Maurice's cyst. 2. SUPERFICIAL ULTRASOUND WITH DOPPLER OF RIGHT LOWER EXTREMITY: GREAT SAPHENOUS VEIN: Saphenofemoral Junction: 0.6 cm; Reflux: 0 ms Proximal Thigh: 0.3 cm; Reflux: 0 ms Mid Thigh: 0.3 cm; Reflux: 0 ms Distal Thigh: 0.1 cm; Reflux: 1764 ms At Knee: 0.1 cm; Reflux: 1020 ms Proximal Calf: 0.2 cm; Reflux: 2400 ms Mid Calf: 0.3 cm; Reflux: 1940 ms Distal Calf: 0.2 cm; Reflux: 2292 ms DUPLICATED MEDIAL GREAT SAPHENOUS VEIN: Diameter: None imaged Reflux: NA DUPLICATED LATERAL GREAT SAPHENOUS VEIN: Diameter: None imaged Reflux: NA SMALL SAPHENOUS VEIN: Saphenopopliteal Junction: 0.2 cm; Reflux: 0 ms Proximal: 0.2 cm; Reflux: 0 ms Distal: 0.3 cm; Reflux: 0 ms VEIN OF GIACOMINI: Size: NA Reflux: NA PERFORATORS: Location: Small saphenous vein mid segment. Size: 0.1 cm. Reflux: NA VARICOSITIES: Location: Great saphenous vein mid calf. Size: 0.2 cm. Reflux: 2404 ms. 3. DEEP VENOUS ULTRASOUND OF THE LEFT LOWER EXTREMITY: Common Femoral Vein: Compressible, normal respiratory variation and augmented flow. Femoral Vein: Compressible, normal color flow and augmentation. Popliteal Vein: Compressible, normal augmentation. Deep Reflux: There is no evidence of reflux in the deep system in either the common femoral vein, superficial femoral or the popliteal vein. There is a 3.9 cm lobulated anechoic abnormality without flow on color Doppler interrogation in the popliteal fossa. 4. SUPERFICIAL ULTRASOUND WITH DOPPLER OF LEFT LOWER EXTREMITY: GREAT SAPHENOUS VEIN: Saphenofemoral Junction: 0.6 cm; Reflux: 0 ms Proximal Thigh: 0.5 cm; Reflux: 0 ms Mid Thigh: 0.2 cm; Reflux: 0 ms Distal Thigh: 0.3 cm; Reflux: 0 ms At Knee: 0.2 cm; Reflux: 2027 ms Proximal Calf: 0.3 cm; Reflux: 0 ms Mid Calf: 0.3 cm; Reflux: 0 ms Distal Calf: 0.2 cm; Reflux: 0 ms DUPLICATED MEDIAL GREAT SAPHENOUS VEIN: Diameter: None imaged Reflux: NA DUPLICATED LATERAL GREAT SAPHENOUS VEIN: Diameter: 0.1 cm. Reflux: NA SMALL SAPHENOUS VEIN: Saphenopopliteal Junction: 0.1 cm; Reflux: 0 ms Proximal: 0.1 cm; Reflux: 0 ms Distal: 0.3 cm; Reflux: 0 ms VEIN OF GIACOMINI: Size: NA Reflux: NA PERFORATORS: Location: Small saphenous vein mid segment. Great saphenous vein mid thigh and midcalf. Size: 0.3 cm. Reflux: NA VARICOSITIES: Location: Right saphenous vein proximal calf. Size: 0.3 cm. Reflux: NA US/US venous insuf bilat IMPRESSION: Right: Venous insufficiency, great saphenous vein from above the knee to the ankle. Varices in the right saphenous vein mid calf with reflux. Left: Venous insufficiency, great saphenous vein at the knee level. Perforators and varices without reflux. Electronically signed by: Virgilio Singh MD 05/22/2024 03:20 PM EDT
== END 2024-05-22 08:13 | disposition home or self-care (01) ==
LOC: HO.US 08:12
PROVIDERS: PCP Nurse Practitioner Family; Visit Provider Physician Assistant Surgical
DX: I83.11 Varicose veins of right lower extremity with inflammation (principal); I83.12 Varicose veins of left lower extremity with inflammation
CPT/HCPCS: 93970

== ENCOUNTER → 2024-05-22 08:14 | Outpatient (BNV) | payer OTHER, SELFPAY | PROVIDERS: PCP Nurse Practitioner Family; Visit Provider Radiology Diagnostic Radiology | DX: I83.893 Varicose veins of bilateral lower extremities with other complications (principal) | CPT/HCPCS: 93970 ==

== ENCOUNTER 2024-06-02 14:10 | Outpatient (AMB) | payer OTHER, SELFPAY ==
--- NOTE | 2024-06-02 14:20 | MHC.OFFVIS ---
Vital Signs 06/02/24 14:21 Height 5 ft 4 in Weight 146 lb BMI 25.1 Intake Visit Reasons: follow up s/p US 05/22/24 Intake Note: follow up 05/22/24. Left LE worse than Right LE, large VV and spider veins. Does sit at a desk but tries to walk around. States she does have a sciatic issue that shoots down the left side. Procedural Nurse Required: No Accompanied by: Self / Same As Patient Allergies No Known Allergies Allergy (Verified 06/02/24 14:24) HPI HPI follow up s/p US 05/22/24: Details: The patient is a 69-year-old female presenting with venous insufficiency and varicose veins. Notably, she first started noticing an increase in varicose veins approximately four years ago, with symptoms described as pulsating pains and heaviness in the right leg, escalating post-exercise. These symptoms have persisted in the context of a sedentary job requiring extended periods of sitting. The patient participates in regular exercise, activating the calf muscles, and takes steps to alleviate symptoms by moving regularly. The comprehensive venous ultrasound on May 22, 2024, and now presents for result review.. Her family medical history is negative for thrombosis events, and she has no history of smoking, diabetes, or leg trauma. [facility] Medical History No pertinent past medical history Surgical History No pertinent past surgical history Family History Mother Cancer Social History Household Members: Spouse Both parents involved: No Caregiver staying overnight: No Housing: House Are you a primary health care specialist to a significant other at home: No Do you presently have visiting nurse or other home services: No 75 years or older and lives alone: No Alcohol intake: current Alcohol intake frequency: a few times a month Patient Tobacco Use Status: Never used Tobacco e-Cigarette/Vaping Use: Never Used Second Hand Smoke Exposure: No Review of Systems Const Reports as per HPI ENT Reports no additional complaints Card Denies chest pain, Denies chest pain at rest and Denies chest pain with activity Resp Denies chest congestion and Denies cough GI Reports no additional complaints Musc Details: pain over varicosities, aching of lower extremities, swelling, cramping, heaviness and tiredness, itching Denies abnormal gait Skin/Breast Reports pruritus and Denies wounds Neuro Reports no additional complaints and Denies abnormal gait Psych Denies no additional complaints Physical Exam Vital Signs: BMI result Body Mass Index 25.1 Const General: cooperative, healthy appearing and comfortable Orientation/consciousness: oriented to person, oriented to place and oriented to time Neck Carotids: no bruits Chest Chest palpation & inspection: normal inspection of the chest and normal palpation of entire chest wall Resp Effort & Inspection: normal respiratory effort and able to speak in complete sentences Cardio Rate: regular rate Heart sounds: S1 normal heart sound present and S2 normal heart sound present Peripheral pulses: Peripheral pulses 2+ throughout GI Inspection: Yes normal to inspection Skin Other: +2 edema, large rope-like varicosities greater than 4 mm left thigh and calf CEAP Classification C4 - skin color changes Ep - Etiology Primary As - superficial veins P - reflux General skin exam: dry skin Neuro General: oriented to person, oriented to place and oriented to time Extrem Right lower extremity: full ROM, normal capillary refill and edema Left lower extremity: full ROM, normal capillary refill and edema Psych Mental Status: mental status grossly normal Results Reviewed Results Reviewed: Brief summary of venous insufficiency testing is as follows: right great saphenous vein: Positive knee on below and vein small in caliber right small saphenous vein: negative right accessory vein: none present left great saphenous vein: Positive at knee only left small saphenous vein: negative left accessory vein: none present Please note there is no evidence of any venous aneurysms or significant tortuosity Assessment & Plan Assessment & Plan (1) Varicose veins of both lower extremities with inflammation: Code(s): I83.11 - Varicose veins of right lower extremity with inflammation; I83.12 - Varicose veins of left lower extremity with inflammation Category: Medical Plan: In short patient is negative for any significant venous insufficiency. Where it is positive vein appears to be extremely small in caliber and would not treat. She does have some superficial varicosities on the left lower extremity that do occasionally cause her some discomfort. At the current time she has elected to manage this conservatively including compression elevation and exercise. She will follow up with us on an as-needed basis. If she is requiring further left leg microphlebectomy she was requested to reach out to our office. Thank you for allowing us to assist in her care. If there are any questions or concerns please do not hesitate to contact us. Coding Level of Care Code Est Pt Level 4 (80147) Diagnoses Varicose veins of both lower extremities with inflammation I83.11; I83.12
[2024-06-02 14:21] VITALS: BMI 25.1
== END 2024-06-02 14:46 | disposition home or self-care (01) ==
LOC: HO.HVS 14:10
PROVIDERS: PCP Nurse Practitioner Family; Visit Provider Surgery Vascular Surgery
DX: I83.11 Varicose veins of right lower extremity with inflammation (principal); I83.12 Varicose veins of left lower extremity with inflammation
CPT/HCPCS: 99214

== ENCOUNTER 2024-06-19 10:53 | Outpatient (REF) | payer OTHER, SELFPAY ==
--- NOTE | ~2024-06-19 | MM_ITS ---
EXAMINATION: DXA BONE DENSITY AXIAL HISTORY: Z13.820 - Encounter for screening for osteoporosis TECHNIQUE: Nabsys Dual energy absorptiometry (DEXA) of the lumbar spine, total left hip, and femoral neck was performed. COMPARISON: There are no prior studies for comparison. FINDINGS: The bone mineral density of the lumbar spine is 1.036 with a T-score of -1.2, and a Z-score of 0.4. This is indicative of osteopenia. The bone mineral density of the left total hip is 0.827 with a T-score of -1.4, and a Z-score of 0.0. This is indicative of osteopenia. The bone mineral density of the left femoral neck is 0.788 with a T-score of -1.8, and a Z-score of -0.1. This is indicative of osteopenia. FRACTURE RISK: The FRAX index suggests a risk of major osteoporotic fracture of 11.1%, and of hip fracture 2.0%. MM/XR DEXA axial skeleton IMPRESSION: Based on bone mineral density, and according to World Health Organization (WHO) criteria, the diagnosis is consistent with osteopenia. All bone density values are in grams per centimeter squared (g/cm2). Statistically, 68% of repeat scans fall within 1 SD (+/- 0.010 g/cm2 for AP spine L1-L4) and 1 SD (+/- 0.012 g/cm2 for femur total) FRAX is a trademark of the [employer]'s [employer] [facility] [employer], a World Health Organization (WHO) Collaborating Center. Electronically signed by: Adolfo Wang MD 06/19/2024 12:52 PM EDT
== END 2024-06-19 10:54 | disposition home or self-care (01) ==
LOC: HO.MAMMO 10:53
PROVIDERS: PCP Nurse Practitioner Family; Visit Provider Nurse Practitioner Family
DX: Z12.31 Encounter for screening mammogram for malignant neoplasm of breast (principal); Z13.820 Encounter for screening for osteoporosis; Z78.0 Asymptomatic menopausal state
CPT/HCPCS: 77063; 77067; 77080

== ENCOUNTER → 2024-06-19 11:30 | Outpatient (BNV) | payer OTHER, SELFPAY | PROVIDERS: PCP Nurse Practitioner Family; Visit Provider Radiology Diagnostic Radiology | DX: E28.39 Other primary ovarian failure (principal) | CPT/HCPCS: 77080 ==

== ENCOUNTER 2024-08-03 09:50 | Outpatient (REF) | payer OTHER, SELFPAY ==
--- NOTE | ~2024-08-03 | US_ITS ---
EXAMINATION: MM DIAGNOSTIC DIGITAL BREAST TOMOSYNTHESIS, LEFT Left Limited ultrasound. CLINICAL INFORMATION: Call back from screening mammography for developing focal asymmetry in the upper outer left breast middle to posterior depth with associated distortion. COMPARISON: Mammography: [facility] on PACS. TECHNIQUE: Digital breast tomosynthesis is performed in both the craniocaudal and mediolateral oblique views along with computer-aided detection (CAD). Synthesized 2D images are generated from the tomosynthesis. FINDINGS: There are scattered areas of fibroglandular density (ACR BI-RADS breast composition Category b). There is a developing focal asymmetry in the upper outer breast middle to posterior depth with associated architectural distortion which persists on additional imaging projections. No suspicious calcifications or other abnormal findings. Targeted color Doppler ultrasound demonstrates a hypoechoic irregular solid mass at 2:00 7 cm from the nipple in the left breast measuring 7 x 5 x 5 mm with internal vascular flow. This correlates with the developing focal asymmetry with distortion on mammography. US/US breast LT limited mamm only IMPRESSION: Left: Solid irregular mass on mammography at 2:00 7 cm from the nipple correlating to a developing focal asymmetry in the upper outer left breast. Recommend histology with ultrasound-guided core needle biopsy at this time. The findings and recommendations were discussed with the patient the procedure will be scheduled. ASSESSMENT: BI-RADS BI-RADS 4 - Suspicious finding RECOMMENDATION: Biopsy recommended Results were provided to the patient at time of visit by the technologist. This patient's information was entered into a reminder system with a target due date for their next mammogram. Electronically signed by: Angelina Sosa DO 08/03/2024 12:05 PM EDEmilio
== END 2024-08-03 09:51 | disposition home or self-care (01) ==
LOC: HO.MAMMO 09:50
PROVIDERS: PCP Nurse Practitioner Family; Visit Provider Nurse Practitioner Family
DX: N64.89 Other specified disorders of breast (principal)
CPT/HCPCS: 76642; 77061; 77065

== ENCOUNTER → 2024-08-03 10:00 | Outpatient (BNV) | payer OTHER, SELFPAY | PROVIDERS: PCP Nurse Practitioner Family; Visit Provider Internal Medicine | DX: N63.21 Unspecified lump in the left breast, upper outer quadrant (principal) | CPT/HCPCS: 76642; 77061; 77065 ==

== ENCOUNTER 2024-08-05 09:45 | Outpatient (REF) | payer OTHER, SELFPAY ==
--- NOTE | ~2024-08-05 | MM_ITS ---
PROCEDURE: ULTRASOUND-GUIDED LEFT BREAST BIOPSY CLINICAL INFORMATION: Developing focal asymmetry in the left breast on mammography with correlating solid irregular mass at 2:00 7 cm from the nipple on ultrasound. COMPARISON: [facility] on PACS. TECHNIQUE: The details of the procedure, as well as the risks, benefits, and alternatives to the procedure were explained to the patient in detail and all of her questions were answered, after which, written informed consent was obtained. PROCEDURE: Prior to the procedure, sonography revealed a solid irregular mass at 2:00 7 cm from the nipple. A time-out was performed, the lesion intended for biopsy was targeted and the skin of the left breast was then prepped and draped in the usual sterile fashion. Using sonographic guidance, sterile technique, and 1% lidocaine without epinephrine for local anesthesia, a total of 6 cores were obtained through the targeted area with a 14-gauge biopsy device. At the completion of tissue sampling, a single butterfly metallic clip was deposited at the biopsy site. An appropriate sample was obtained. The postprocedure 2-view direct digital mammogram reveals satisfactory positioning of the biopsy clip. The patient tolerated the procedure well and, after assuring adequate hemostasis, was discharged in good condition after reviewing postbiopsy breast care instructions. Final pathology results are pending. MM/MM tomosynthesis diagnostic LT IMPRESSION: 1. Uncomplicated sonographically-guided core biopsy of the left breast. The 2-view direct digital postprocedure mammogram reveals satisfactory positioning of the biopsy clip. 2. Final pathology results are pending. A separate report with final recommendations will be issued once these results are made available. Electronically signed by: Angelina Sosa DO 08/05/2024 11:14 AM EDT
[2024-08-05] MEDS: Sodium Bicarbonate 8.4% 50 MEQ/50 ML VIAL SUBCUT (10:38)
[2024-08-05] MEDS: Lidocaine HCl 1 % 20 ML VIAL 9 ML SUBCUT (10:40)
== END 2024-08-05 09:46 | disposition home or self-care (01) ==
LOC: HO.MAMMO 09:45
PROVIDERS: PCP Nurse Practitioner Family; Visit Provider Surgery
DX: N63.21 Unspecified lump in the left breast, upper outer quadrant (principal)
CPT/HCPCS: 19083; 77061; 77065; 88305; 88360; A4648; J2003

== ENCOUNTER → 2024-08-05 10:00 | Outpatient (BNV) | payer OTHER, SELFPAY | PROVIDERS: PCP Nurse Practitioner Family; Visit Provider Internal Medicine | DX: N63.21 Unspecified lump in the left breast, upper outer quadrant (principal) | CPT/HCPCS: 19083; 77065 ==

== ENCOUNTER 2024-08-13 15:25 | Outpatient (AMB) | payer OTHER, SELFPAY ==
--- NOTE | 2024-08-13 15:27 | A.OFFVIS_ITS ---
Vital Signs 3 08/13/24 15:42 Height 5 ft 4 in Weight 145 lb 8.081 oz BMI 25.0 Pulse 80 Intake Visit Reasons: (L) breast US BX 2 O'Clock asymmetry Intake Note: Patient is seen in office for ultrasound biopsy Consult & Results, following left breast 2 o'clock mass. Pt c/o: did not feel a lump, was found by mammogram, denies any prior breast lump, infections or surgeries, no fm hx of breast cancer, yes to breast feeding with no complications, had biopsy done and is here for results, admits to increase brusing Surgery Specialist Required: No Associate: Associate Present Accompanied by: Self / Same As Patient Allergies No Known Allergies Allergy (Verified 08/13/24 15:44) Medication List - Last Reconciled 08/17/24 by Filiberto Keller MD cholecalciferol (vitamin D3) 10 mcg PO DAILY HPI Comments Details: 69-year-old female patient returning following an ultrasound-guided core biopsy of the left breast, 02:00 location for abnormal mammogram and ultrasound. She denies a previous history of breast problems or breast surgery and her family history is negative for breast cancer or ovarian cancer. She is . A screening mammogram performed on 06/19/2024 plus additional images and ultrasound performed a left breast solid irregular mass at the 02:00 location approximately 7 cm from the nipple by ultrasound corresponding to a focal asymmetry on mammogram. The ultrasound-guided core biopsy was performed at the [facility] on 08/05/2024. She tolerated this well but does report some bruising outside the skin. Pathology revealed a left breast invasive ductal carcinoma, grade 1, ER/MI positive, HER2 Bnoy negative, Ki-67 low. A copy of the pathology report was provided to the patient at the time of this visit. [facility] Medical History (Updated 08/17/24 @ 09:28 by Filiberto Keller MD) Invasive ductal carcinoma of left breast No pertinent past medical history Surgical History No pertinent past surgical history Family History Mother Cancer Sister Melanoma of eye Social History Household Members: Spouse Both parents involved: No Caregiver staying overnight: No Housing: House Are you a primary post acute care nurse practitioner to a significant other at home: No Do you presently have visiting nurse or other home services: No 75 years or older and lives alone: No Alcohol intake: current Alcohol intake frequency: a few times a month Patient Tobacco Use Status: Never used Tobacco e-Cigarette/Vaping Use: Never Used Second Hand Smoke Exposure: No Female Reproductive History Menstrual Age of Menarche: 10 Date of last menstrual period: 02/18/03 Total pregnancies: 2 Number of Living Children: 2 Review of Systems Const All systems reviewed & are unremarkable except as noted in HPI and below Physical Exam Vital Signs: Last Vital Signs Pulse 80 08/13/24 15:42 BMI result Body Mass Index 25.0 Const General: cooperative and no acute distress Nutritional Appearance: well nourished Orientation/consciousness: patient oriented x3 Limitations: no limitations HEENT Head: Yes normocephalic and Yes atraumatic Ears: hearing grossly normal bilaterally Chest Other: Left breast: Large area of ecchymosis in the lower outer quadrant with biopsy site at the 02:00 location with intact Steri-Strips. Fullness noted below the skin which may either be the underlying mass verses hematoma. No other palpable mass, or enlarged lymph nodes were appreciated. Right breast: No skin change, no nipple retraction, no nipple discharge, no palpable mass, no enlarged lymph nodes Chest/axillae images: 2 1. Area of ecchymosis Resp Effort & Inspection: normal respiratory effort, no audible wheezes, no cough and no respiratory distress Cardio Jugular venous distension: no JVD GI Inspection: Yes normal to inspection Skin Other: Warm, dry, no rash Neuro Other: Mobility Assessment: 1. 3 meter assessment time (seconds): 5 2. Gait observations: Normal balance and gait General: patient oriented x3 Extrem General: Yes no clubbing, cyanosis or edema Assessment & Plan Assessment & Plan (1) Invasive ductal carcinoma of left breast: Code(s): C50.912 - Malignant neoplasm of unspecified site of left female breast Category: Medical Plan 69-year-old female patient with a newly diagnosed left breast invasive ductal carcinoma, status post ultrasound-guided core biopsy 1 week ago. I reviewed the pathology results in detail and discussed the treatment options available. The lesion appears small with favorable immunohistochemical stains and she should be a good candidate for breast conservation. I reviewed the procedure, risks, and alternatives in detail and she consents to a left breast lumpectomy with localizer and right axillary sentinel node biopsy. She will be scheduled as a short-stay surgery. Coding Level of Care Code New Pt Level 4 (80480) Diagnoses Invasive ductal carcinoma of left breast C50.912
[2024-08-13 15:42] VITALS: PULSE 80; BMI 25.0
== END 2024-08-13 15:54 | disposition home or self-care (01) ==
LOC: HO.HGS 15:25
PROVIDERS: PCP Nurse Practitioner Family; Visit Provider Surgery
DX: C50.912 Malignant neoplasm of unspecified site of left female breast (principal)
CPT/HCPCS: 99204

== ENCOUNTER → 2024-09-10 08:00 | Outpatient (BNV) | payer OTHER, SELFPAY | PROVIDERS: PCP Nurse Practitioner Family; Visit Provider Internal Medicine | DX: C50.412 Malignant neoplasm of upper-outer quadrant of left female breast (principal) | CPT/HCPCS: 19285; 77065 ==

== ENCOUNTER 2024-09-10 08:01 | Outpatient (REF) | payer OTHER, SELFPAY ==
--- NOTE | ~2024-09-10 | US_ITS ---
EXAMINATION: Ultrasound GUIDED RFID LOCALIZATION BREAST, LEFT CLINICAL INFORMATION: Left breast invasive ductal carcinoma with mucinous features. Here for ultrasound-guided localization. COMPARISON: [facility] on PACS. TECHNIQUE NEEDLE LOC: Proper informed consent is obtained from the patient after discussion of the procedure, potential risks and complications, and alternatives including declining the procedure today. Patient was given an opportunity for questions. The patient appeared to understand. The patient consented to the procedure and signed the consent form. GUIDANCE: Ultrasound. APPROACH: Lateral Medial. TARGET: Left breast mass 2:00 butterfly clip. ANESTHESIA: carbonated lidocaine. LOCALIZATION SYSTEM: [employer] LOCallizer Wire-Free Guidance System with 12g needle applicator. RADIOFREQUENCY TAG: ID # [id number] RF Tag ID confirmed with LOCalizer Guidance System prior to placement. The skin is prepped and local anesthesia administered. The needle is positioned and RFID tag deployed. Final images demonstrate the LOCalizer RF tag to reside within the mass adjacent to the marker clip however the marker clip is not seen on mammography many images were taken. The marker clip was seen on ultrasound is adjacent to the tag. The patient tolerated the procedure well and had no immediate complications. Dressing placed and home instructions reviewed. US/US Breast RF Tag Device Left IMPRESSION: -Status post left breast RFID localization. Electronically signed by: Angelina Sosa DO 09/10/2024 09:55 AM EDT
--- NOTE | ~2024-09-10 | MM_ITS ---
EXAMINATION: Ultrasound GUIDED RFID LOCALIZATION BREAST, LEFT CLINICAL INFORMATION: Left breast invasive ductal carcinoma with mucinous features. Here for ultrasound-guided localization. COMPARISON: [facility] on PACS. TECHNIQUE NEEDLE LOC: Proper informed consent is obtained from the patient after discussion of the procedure, potential risks and complications, and alternatives including declining the procedure today. Patient was given an opportunity for questions. The patient appeared to understand. The patient consented to the procedure and signed the consent form. GUIDANCE: Ultrasound. APPROACH: Lateral Medial. TARGET: Left breast mass 2:00 butterfly clip. ANESTHESIA: carbonated lidocaine. LOCALIZATION SYSTEM: [employer] LOCallizer Wire-Free Guidance System with 12g needle applicator. RADIOFREQUENCY TAG: ID # [id number] RF Tag ID confirmed with LOCalizer Guidance System prior to placement. The skin is prepped and local anesthesia administered. The needle is positioned and RFID tag deployed. Final images demonstrate the LOCalizer RF tag to reside within the mass adjacent to the marker clip however the marker clip is not seen on mammography many images were taken. The marker clip was seen on ultrasound is adjacent to the tag. The patient tolerated the procedure well and had no immediate complications. Dressing placed and home instructions reviewed. MM/MM tomosynthesis diagnostic LT IMPRESSION: -Status post left breast RFID localization. Electronically signed by: Angelina Sosa DO 09/10/2024 09:55 AM EDT
[2024-09-10] MEDS: Lidocaine HCl 1 % 20 ML VIAL 6 ML SUBCUT (09:39)
== END 2024-09-10 08:02 | disposition home or self-care (01) ==
LOC: HO.MAMMO 08:01
PROVIDERS: PCP Nurse Practitioner Family; Visit Provider Surgery
DX: C50.912 Malignant neoplasm of unspecified site of left female breast (principal)
CPT/HCPCS: 19285; 77061; 77065; C1819; J2003

== ENCOUNTER 2024-09-15 06:56 | Day surgery (SDC) | payer OTHER, SELFPAY ==
[2024-09-11 12:56] VITALS: BMI 25.0
--- NOTE | 2024-09-14 13:26 | HO.ANESPROP2 ---
Documented by User: Mary Phillips NP 09/14/24 13:29 HPI - Anesthesia Eval Consult details Narrative: 69yo F for Left Breast Lumpectomy w/LOCalizer, [place] Node Biopsy PMFSH Active Problems Active Problems: All Active Problems Osteopenia (Acute) HLD (hyperlipidemia) (Acute) Screening for lipid disorders (Acute) Varicose veins of both lower extremities with inflammation (Acute) Vitamin D deficiency (Acute) Advanced care planning/counseling discussion (Acute) Diabetes mellitus screening declined by patient (Acute) Lipid screening declined by patient (Acute) Varicose veins of both legs with edema (Acute) Laboratory exam ordered as part of routine general medical examination (Acute) Menopause (Acute) Visit for suture removal (Acute) Invasive ductal carcinoma of left breast (Acute) Past Medical History Medical History Varicose vein of leg Hyperlipidemia Osteopenia Invasive ductal carcinoma of left breast Family History Family History Mother Cancer Sister Melanoma of eye Surgical History Surgical History No pertinent past surgical history Social History Social History Household Members: Spouse Both parents involved: No Caregiver staying overnight: No Housing: House Are you a primary certified caregiver to a significant other at home: No Do you presently have visiting nurse or other home services: No 75 years or older and lives alone: No Alcohol intake: current Alcohol intake frequency: a few times a month Comment: counts correct Patient Tobacco Use Status: Never used Tobacco e-Cigarette/Vaping Use: Never Used Second Hand Smoke Exposure: No Meds Allergies Allergy/AdvReac Type Severity Reaction Status Date / Time No Known Allergies Allergy Verified 08/13/24 15:44 Home Medications ?Medication ?Instructions ?Recorded ?Confirmed ?Last Taken ?Type cholecalciferol (vitamin D3) 10 10 mcg PO DAILY 04/30/24 08/17/24 Unknown History mcg (400 unit) capsule Exam Height,Weight and Vital Signs: Height 5 ft 4 in Weight 66 kg Pertinent Lab Results Pertinent Lab Results: Laboratory Tests 04/23/24 11:48 Sodium 140 Potassium 4.4 Chloride 105 Carbon Dioxide 25 BUN 14 Creatinine 0.91 Narrative Narrative: EKG 04/2024 NSR @ 60 Minimal criteria for LVH Assessment and Plan Assessment Anesthesia Assessment: Chart Reviewed Documented by User: William Vazquez MD 09/15/24 16:54 PMFSH Past Medical History Medical History Varicose vein of leg Hyperlipidemia Osteopenia Invasive ductal carcinoma of left breast Family History Family History Mother Cancer Sister Melanoma of eye Family history of problems with anesthesia: No Surgical History Surgical History No pertinent past surgical history History of Problems with Anesthesia: No Social History Social History Household Members: Spouse Both parents involved: No Caregiver staying overnight: No Housing: House Are you a primary certified caregiver to a significant other at home: No Do you presently have visiting nurse or other home services: No 75 years or older and lives alone: No Alcohol intake: current Alcohol intake frequency: a few times a month Comment: counts correct Patient Tobacco Use Status: Never used Tobacco e-Cigarette/Vaping Use: Never Used Second Hand Smoke Exposure: No Meds Allergies Allergy/AdvReac Type Severity Reaction Status Date / Time No Known Allergies Allergy Verified 08/13/24 15:44 Home Medications ?Medication ?Instructions ?Recorded ?Confirmed ?Last Taken ?Type cholecalciferol (vitamin D3) 10 10 mcg PO DAILY 04/30/24 08/17/24 Unknown History mcg (400 unit) capsule Assessment and Plan Assessment Anesthesia Assessment: Anesthesia Plan Discussed Final Anesthetic Review Family History of Problems with Anesthesia: No History of Problems with Anesthesia: No NPO: Yes ASA Class: II Final Preanesthetic Review: No Changes in Pt Med Stat, Meds/Allgs Chart Reviewed, Consent Obtained/Reviewed and Anes Risks/Benef Reviewed Patient Risk: Low Procedure Risk: Low Anesthetic Plan Anesthetic Plan: GA Disposition: Standard PACU
--- NOTE | ~2024-09-15 | NM_ITS ---
EXAMINATION: Left breast sentinel node. Nuclear medicine. CLINICAL INDICATION: Left breast invasive ductal cancer. COMPARISON: Left mammogram 09/10/2024. TECHNIQUE: Following explaining left breast sentinel node procedure, benefits and risk a written consent was obtained from the patient by Dr. jonathon Bates. 4% lidocaine jelly cream was applied around the left breast areola 30 minutes prior to procedure. Lidocaine Jelly around the areola was cleaned. The area around the areola was cleaned and aseptic manner. 10.5 mCi of technetium 99m Tilmanocept divided in 4 equal doses was injected in 4 quadrants around left breast areola and imaging obtained 30 minutes later. Patient tolerated procedure extremely well. FINDINGS/ NM/NM sentinel node w imaging IMPRESSION: There is normal activity seen around the left breast areola. Faint solitary sentinel node is visualized in the left anterior axilla. Electronically signed by: Jaden Hays MD 09/15/2024 02:19 PM EDT
--- NOTE | ~2024-09-15 | MM_ITS ---
Left specimen radiographs (3 images) demonstrate the LOCalizer tag within the specimen, but no biopsy clip could be identified. These findings were discussed with the breast surgeon Dr. Hendrickson at the time of interpretation of the images at approximately 1:25 PM on September 15, 2024. Note that a butterfly shaped clip was placed following ultrasound-guided needle core biopsy on August 05, 2024, which was visualized in satisfactory position on the mammogram obtained immediately following the ultrasound-guided needle core biopsy. A LOCalizer tag was placed on September 10, 2024. The biopsy clip could not be seen on multiple mammograms obtained following the tag placement. Electronically signed by: Stephan Dennison MD 09/15/2024 02:03 PM EDT
[2024-09-15 07:18] VITALS: BP 146/60; PULSE 62; RESP 16; TEMP 36.6; O2SAT 98
[2024-09-15] MEDS: Lactated Ringers 1,000 ML 100 ML IVCONT (07:21)
--- NOTE | 2024-09-15 12:17 | MHC.SHP ---
Pre-Procedural Eval Section A - 24 Hr Update-Section A only Date of Service: 09/15/24 The patient is an INPATIENT: No Changes since office visit: Yes Patient answered all questions; No Cold of Flu in the past 2 weeks, No New Medical Problems and No Changes in Medication The patient has been examined within 24 hours of the surgical procedure. The History & Physical has been completed within 30 days and I have reviewed it.: No Section B - Complete if H&P > 30 days Chief Complaint: Malignant neoplasm of unspecified site of left Details of Present Illness: No change in patient's symptoms. Relevant Family History (Specify if Yes): No Relevant Social History: None Present Medications: see Short Stay Collaborative assessment Medical History: No relevant PMH History of Previous Operations: No relevant previous surgery Allergies: Allergies Allergy/AdvReac Type Severity Reaction Status Date / Time No Known Allergies Allergy Verified 08/13/24 15:44 Review of Systems Sugical H&P ROS: Negative: Constitution, Cardiovascular, Respiratory, Neurological, Psychiatric, Hem-Onc, Allergic/Immunologic, Gastrointestinal, Genitourinary, Musculoskeletal, Integumentary, Endocrine and Eyes/Ears/Nose/Throat Exam Surgical H&P Exam: Normal: HEENT, Normal: Heart, Normal: Lungs, Normal: Extremities, Normal: Abdomen, Normal: Skin and Normal: Neurological Plan Diagnosis/Plan: Unchanged I have reviewed the history and physical and performed a pertinent physical examination on my patient. No changes have occurred unless specified. Time Spent With Patient Time: Total time managing care of this patient today ____ minutes.
--- NOTE | 2024-09-15 14:06 | P.OP_ITS ---
Operative Note Operative Note Date of Service: 09/15/24 Narrative: Preoperative diagnosis: Invasive ductal carcinoma left breast Postoperative diagnosis: Same Procedure: Left breast lumpectomy with localizer, left axillary sentinel node biopsy Surgeon: Filiberto Keller MD Shingle Weaver: Carlos Mix PA-C, ANGELA Henderson Anesthesia: General LMA Indications for procedure: 69-year-old female patient with a recent density noted in the left breast at the upper outer quadrant felt to be suspicious for malignancy. Subsequent ultrasound-guided core biopsy revealed an invasive ductal carcinoma, ER/AZ positive HER2 Bony negative, Ki-67 low. She presents today for lumpectomy and sentinel node biopsy. On preoperative lymphoscintigraphy minimal activity is noted in the left axilla. Operative findings: Localizing clip noted within the specimen x-ray however marking clip is not identified on specimen x-ray. A palpable masses noted in the specimen close to the skin margin. Additional skin margin was obtained from the inferior portion of the incision. Minimal to no radioactivity was noted in the axilla. No palpable nodes were noted in the axilla. Specimen: Left breast lumpectomy, additional skin margin, axillary tissue x2 Estimated blood loss: 10 mL Complications: None Procedure details: Patient was brought to the OR and placed in a supine position. After administering general anesthesia the patient's left breast was prepped with ChloraPrep and draped in a sterile fashion. A surgical time-out was called the consent confirmed. Patient received preoperative antibiotics and Venodyne boots were in place. Localizer device was then used to identify the area of increased activity. Local anesthesia was infiltrated in a curvilinear fashion over this location. A curvilinear incision was then made with a scalpel and carried out through subcutaneous tissue. Superior and inferior skin flaps were then created using sharp dissection and electrocautery. A core of tissue around the localizing clip was then performed extending down to chest wall. The specimen was removed and specimen x-ray confirmed a localizer clip and no marking clip within the specimen. Additional examination of the hollows revealed no clip within the breast cavity. Specimen was sent to pathology for further examination. This confirmed a firm mass superficial, close the skin margin. The decision was made to send additional skin margin with the specimen which was sent as a 2nd specimen. Attention was then directed to the axilla which was approached through the lumpectomy incision. Using the gamma probe an area of slight activity was noted in the axilla. The dissection into the axillary compartment revealed no palpable nodes. Several areas of low activity were excised but no palpable node noted within the specimen. These were sent as axillary tissue. No further radio activity was identified within the axilla. No additional palpable nodes were identified. Wounds were irrigated with saline solution and suctioned dry. The breast cavity was marked with hemoclips. Clavipectoral fascia was reapproximated using interrupted 3-0 Polysorb sutures. Breast tissue was reapproximated using interrupted 3-0 Polysorb sutures as was the dermis. Skin was closed using a running subcuticular 4-0 Polysorb suture. Steri-Strips, 4 x 4 gauze and Tegaderm were then applied. The patient tolerated the procedure well. Sponge, instrument, and needle counts were reported as correct. The patient was transferred to PACU in stable condition. Breast [place] Node Biopsy Substrate(s) used for sentinel node biopsy in the non-neoadjuvant setting: Radiotracer Substrate(s) used for sentinel node biopsy in the neoadjuvant setting: N/A All colored nodes or non-colored nodes present at the end of a dye filled lymphatic channel were removed, if dye was used as the substrate for localization: N/A All significantly radioactive nodes were removed, if radionuclide was used as the substrate for localization: Yes All palpably suspicious nodes were removed, if present: Yes If clips were placed in pathology-involved nodes, those nodes were identified and removed: N/A Procedure performed with curative intent?: Yes General Surg. - Synoptic Notes Breast [place] Node Biopsy Substrate(s) used for sentinel node biopsy in the non-neoadjuvant setting: Radiotracer Substrate(s) used for sentinel node biopsy in the neoadjuvant setting: N/A All colored nodes or non-colored nodes present at the end of a dye filled lymphatic channel were removed, if dye was used as the substrate for localization: N/A All significantly radioactive nodes were removed, if radionuclide was used as the substrate for localization: Yes All palpably suspicious nodes were removed, if present: Yes If clips were placed in pathology-involved nodes, those nodes were identified and removed: N/A Procedure performed with curative intent?: Yes
[2024-09-15 14:20] VITALS: BP 138/60; PULSE 76; RESP 14; TEMP 36.6; O2SAT 97
[2024-09-15 14:25] VITALS: BP 131/67; PULSE 66; RESP 12; O2SAT 98
[2024-09-15 14:30] VITALS: BP 132/70; PULSE 72; RESP 14; O2SAT 97
[2024-09-15 14:35] VITALS: BP 140/76; PULSE 67; RESP 16; O2SAT 96
[2024-09-15 14:50] VITALS: BP 139/65; PULSE 65; RESP 18; TEMP 36.4; O2SAT 96
== END 2024-09-15 15:14 | disposition home or self-care (01) ==
PROVIDERS: PCP Nurse Practitioner Family; Visit Provider Surgery
PROC: (CPT 19301; principal; 2024-09-15 11:00)
PROC: (CPT 19301; 2024-09-15 11:00)
DX: C50.412 Malignant neoplasm of upper-outer quadrant of left female breast (principal); Z17.0 Estrogen receptor positive status [ER+]; Z17.21 Progesterone receptor positive status; Z17.32 Human epidermal growth factor receptor 2 negative status; M85.80 Other specified disorders of bone density and structure, unspecified site; E78.5 Hyperlipidemia, unspecified; I83.90 Asymptomatic varicose veins of unspecified lower extremity; Z79.899 Other long term (current) drug therapy
CPT/HCPCS: 19301; 38525; 38900; 78195; 88304; 88305; 88307; A9520; C1889; J0131; J0690; J1100; J1171; J2003; J2405; J2704; Q9968

== ENCOUNTER → 2024-09-15 06:56 | Outpatient (BNV) | payer OTHER, SELFPAY | PROVIDERS: PCP Nurse Practitioner Family; Visit Provider Surgery | DX: C50.412 Malignant neoplasm of upper-outer quadrant of left female breast (principal) | CPT/HCPCS: 19301; 38525; 38900 ==

== ENCOUNTER → 2024-09-15 08:32 | Outpatient (BNV) | payer OTHER, SELFPAY | PROVIDERS: PCP Nurse Practitioner Family; Visit Provider Radiology Diagnostic Radiology | DX: C50.912 Malignant neoplasm of unspecified site of left female breast (principal) | CPT/HCPCS: 78195 ==

== ENCOUNTER 2024-09-25 10:39 | Outpatient (AMB) | payer OTHER, SELFPAY ==
--- NOTE | 2024-09-25 10:44 | A.OFFVIS_ITS ---
Vital Signs 3 09/25/24 10:47 Weight 140 lb BP 160/75 H Blood Pressure Location Rt brachial Position Sitting Pulse 72 Intake Visit Reasons: S/P Lt. brst lumpectomy w/localizer & Lt. SN bx Intake Note: Patient is seen in office for post op assessment post left breast lumpectomy. Pt c/o: reports incision healing well. Steri strips in place. Only took tylenol for discomfort. 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 Pathology revealed a left breast invasive mucinous carcinoma, grade 1, 8 mm in size with positive anterior margins. An additional revision of the anterior margin labeled as ?skin, left inferior breast, excision? revealed no carcinoma identified. One of 4 lymph nodes revealed metastatic carcinoma, ER positive, NH positive, HER2 Bony negative, low proliferation index. She tolerated the procedure well but does have some slight numbness in the left upper extremity along the medial surface. She denies significant pain in the breast. Her family history is negative for breast cancer or ovarian cancer. She is . Screening mammogram performed on 06/19/2024 with a additional images and ultrasound performed of the left breast revealed a solid irregular mass in the 02:00 location approximately 7 cm from the nipple and was felt to be suspicious. She subsequently underwent ultrasound-guided core biopsy on 08/05/2024. [facility] Medical History Varicose vein of leg Hyperlipidemia Osteopenia Invasive ductal carcinoma of left breast Surgical History History of lumpectomy of left breast (09/15/24) Family History Mother Cancer Sister Melanoma of eye Social History Household Members: Spouse Both parents involved: No Caregiver staying overnight: No Housing: House Are you a primary respiratory care practitioner to a significant other at home: No Do you presently have visiting nurse or other home services: No 75 years or older and lives alone: No Alcohol intake: current Alcohol intake frequency: a few times a month Comment: counts correct Patient Tobacco Use Status: Never used Tobacco e-Cigarette/Vaping Use: Never Used Second Hand Smoke Exposure: No Female Reproductive History Menstrual Age of Menarche: 10 Review of Systems Const All systems reviewed & are unremarkable except as noted in HPI and below Physical Exam Vital Signs: Last Vital Signs Pulse 72 09/25/24 10:47 BP 160/75 H 09/25/24 10:47 Const General: cooperative and no acute distress Nutritional Appearance: well nourished Orientation/consciousness: patient oriented x3 Limitations: no limitations HEENT Head: Yes normocephalic and Yes atraumatic Ears: hearing grossly normal bilaterally Chest Other: Left breast: Incision in a radial fashion at the upper outer quadrant is clean, dry, and intact with intact Steri-Strips. No underlying hematoma or seroma is appreciated. No seroma is noted within the axillary compartment. Right breast: No skin change, no nipple retraction, no nipple discharge, no palpable mass, no enlarged lymph nodes Chest/axillae images: 2 1. Resp Effort & Inspection: normal respiratory effort, no audible wheezes, no cough and no respiratory distress Cardio Jugular venous distension: no JVD GI Inspection: Yes normal to inspection Skin Other: Warm, dry, no rash Neuro Other: Mobility Assessment: 1. 3 meter assessment time (seconds): 5 2. Gait observations: Normal balance and gait General: patient oriented x3 Extrem General: Yes no clubbing, cyanosis or edema Assessment & Plan Assessment & Plan (1) Invasive ductal carcinoma of left breast: Code(s): C50.912 - Malignant neoplasm of unspecified site of left female breast Category: Medical Plan 69-year-old female patient returning status post left breast lumpectomy with sentinel node biopsy left axilla for invasive mucinous carcinoma, grade 1, 8 mm in size. Initial excision specimen revealed a positive anterior margin. The anterior margin was revised with a specimen labeled ?skin, left inferior breast, excision? which revealed skin with procedure related changes; no carcinoma identified. One of 4 sentinel lymph nodes were positive for metastatic disease. I reviewed the pathology in detail with the patient and recommended oncology evaluation. She expressed understanding and agrees with the plan. She will follow up in approximately 1 month for wound check. She is welcome to call sooner for any questions or problems. Orders: Referrals 2 Hematology & Oncology Referral C50.912 - Malignant neoplasm of unspecified site of left female breast Coding Level of Care Code Global (07739) Diagnoses Invasive ductal carcinoma of left breast C50.912
[2024-09-25 10:47] VITALS: BP 160/75; PULSE 72
== END 2024-09-25 11:04 | disposition home or self-care (01) ==
LOC: HO.HGS 10:39
PROVIDERS: PCP Nurse Practitioner Family; Visit Provider Surgery
DX: C50.912 Malignant neoplasm of unspecified site of left female breast (principal)
CPT/HCPCS: 99024

== ENCOUNTER → 2024-10-09 10:59 | Outpatient (BNV) | payer OTHER, SELFPAY | PROVIDERS: PCP Nurse Practitioner Family; Visit Provider Internal Medicine | DX: C50.912 Malignant neoplasm of unspecified site of left female breast (principal) | CPT/HCPCS: 99205 ==

== ENCOUNTER 2024-10-30 11:19 | Outpatient (AMB) | payer OTHER, SELFPAY ==
--- NOTE | 2024-10-30 11:33 | MHC.OFFVIS ---
Vital Signs 10/30/24 11:52 Height 5 ft 4 in Weight 141 lb BMI 24.2 BP 173/81 H Blood Pressure Location Lt brachial Position Sitting Pulse 68 Intake Visit Reasons: 1m f/u Lt br lumpectomy Intake Note: Patient is seen in office for one month follow up visit, post left breast lumpectomy. Pt c/o: starting radiation on 11/23/24, 16 session of regular and then 4 more boost, then will go on the pill, still has numbness under the axilla is less than last visit Dr Arceo:10/09/24 (raditation ? chemotherapy ? pill ?) Hand Binder Cutter Required: No News Copy Editor: News Copy Editor Present Accompanied by: Self / Same As Patient Allergies No Known Allergies Allergy (Verified 10/30/24 11:37) Medication List - Last Reconciled 11/02/24 by Filiberto Keller MD cranberry-vit [id number] 1 gram-120 mg- 1 gram/30 mL ([place]) mL PO HPI Comments Details: 69-year-old female patient returning following left breast lumpectomy with left axillary sentinel node biopsy performed on 09/15/2024. Pathology revealed a left breast invasive mucinous carcinoma, grade 1, 8 mm in size with positive anterior margins. An additional revision of the anterior margin labeled as ?skin, left inferior breast, excision? revealed no carcinoma identified. One of 4 lymph nodes revealed metastatic carcinoma, ER positive, [place] positive, HER2 Bony negative, low proliferation index. She tolerated the procedure well but does have some slight numbness in the left upper extremity along the medial surface. Overall this has improved from her prior visit but still present to some degree. She denies significant pain in the breast. She is . She was evaluated by Dr. Arceo in his now awaiting radiation therapy at [facility]. [facility] Medical History Varicose vein of leg Hyperlipidemia Osteopenia Invasive ductal carcinoma of left breast Surgical History History of lumpectomy of left breast (09/15/24) Family History Mother Cancer Sister Melanoma of eye Social History Household Members: Spouse Both parents involved: No Caregiver staying overnight: No Housing: House Are you a primary child care teacher to a significant other at home: No Do you presently have visiting nurse or other home services: No 75 years or older and lives alone: No Alcohol intake: current Alcohol intake frequency: a few times a month Comment: counts correct Patient Tobacco Use Status: Never used Tobacco e-Cigarette/Vaping Use: Never Used Second Hand Smoke Exposure: No Female Reproductive History Menstrual Age of Menarche: 10 Physical Exam Vital Signs: Last Vital Signs Pulse 68 10/30/24 11:52 BP 173/81 H 10/30/24 11:52 BMI result Body Mass Index 24.2 Const General: cooperative and no acute distress Nutritional Appearance: well nourished Orientation/consciousness: patient oriented x3 Limitations: no limitations HEENT Head: Yes normocephalic and Yes atraumatic Ears: hearing grossly normal bilaterally Chest Other: Left breast: Incision in a radial fashion at the upper outer quadrant is clean, dry, and intact with intact Steri-Strips. No underlying hematoma or seroma is appreciated. No seroma is noted within the axillary compartment. Right breast: No skin change, no nipple retraction, no nipple discharge, no palpable mass, no enlarged lymph nodes Resp Effort & Inspection: normal respiratory effort, no audible wheezes, no cough and no respiratory distress Cardio Jugular venous distension: no JVD GI Inspection: Yes normal to inspection Skin Other: Warm, dry, no rash Neuro Other: Mobility Assessment: 1. 3 meter assessment time (seconds): 5 2. Gait observations: Normal balance and gait General: patient oriented x3 Extrem General: Yes no clubbing, cyanosis or edema Assessment & Plan Assessment & Plan (1) Invasive ductal carcinoma of left breast: Code(s): C50.912 - Malignant neoplasm of unspecified site of left female breast Category: Medical Plan 69-year-old female patient returning status post left breast lumpectomy with sentinel node biopsy left axilla for invasive mucinous carcinoma, grade 1, 8 mm in size. One of 4 sentinel lymph nodes were positive for metastatic disease. She has been evaluated by Medical Oncology and Radiation Oncology and we will be starting radiation to the left breast soon. Her wounds are clean and intact without evidence of infection, seroma or hematoma. She should return for follow-up examination in approximately 6 months, sooner PRN. Coding Level of Care Code Global (79831) Diagnoses Invasive ductal carcinoma of left breast C50.912
[2024-10-30 11:52] VITALS: BP 173/81; PULSE 68; BMI 24.2
== END 2024-10-30 11:54 | disposition home or self-care (01) ==
LOC: HO.HGS 11:19
PROVIDERS: PCP Nurse Practitioner Family; Visit Provider Surgery
DX: C50.912 Malignant neoplasm of unspecified site of left female breast (principal)
CPT/HCPCS: 99024